=== PATIENT | female | born 1940 | race Caucasian/White ===

== ENCOUNTER → 2016-08-13 | Outpatient (CLI) | payer MEDICARE | END | disposition home or self-care (01) | LOC: CFH 12:40 | PROVIDERS: ATTEND Family Medicine | DX: N63 Unspecified lump in breast (principal); N64.52 Nipple discharge | CPT/HCPCS: 76641; G0204 ==

== ENCOUNTER → 2016-08-27 | Outpatient (CLI) | payer MEDICARE ==
[~2016-08-27] MED LIST: LIDOCAINE 1%, 20ML ONE; SODIUM BICARBONATE 4.2%, 5ML ONE
== END | disposition home or self-care (01) ==
LOC: CFH 08:22
PROVIDERS: ATTEND Family Medicine
DX: N63 Unspecified lump in breast (principal)
CPT/HCPCS: 19083; 88305; G0206; J3490

== ENCOUNTER → 2016-09-12 | Outpatient (CLI) | payer MEDICARE ==
[~2016-09-12] MED LIST changes: +ASPI-496 PO; +CHOL200024 PO; -LIDOCAINE 1%, 20ML ONE; +MULT-516 PO; +OMEG1CAP56 PO; -SODIUM BICARBONATE 4.2%, 5ML ONE
== END | disposition home or self-care (01) ==
LOC: STAR 10:12
PROVIDERS: ATTEND Surgery
DX: Z01.818 Encounter for other preprocedural examination (principal); R94.31 Abnormal electrocardiogram [ECG] [EKG]; C50.219 Malignant neoplasm of upper-inner quadrant of unspecified female breast; E78.00 Pure hypercholesterolemia, unspecified
CPT/HCPCS: 93005

== ENCOUNTER 2016-09-22 10:00 | Day surgery (SDC) | payer MEDICARE ==
[2016-09-12 10:33] VITALS: BP 156/88
[~2016-09-22] VITALS: Ht 180.3 cm; Wt 83.5 kg
[2016-09-22] MEDS ORDERED: LACTATED RINGERS 1,000 ML IV SCH (10:17)
[2016-09-22] MEDS ORDERED: LIDOCAINE 1%, 2ML ONE (10:25)
[2016-09-22] MEDS ORDERED: LIDOCAINE 1%, 2ML SQ PRN (10:30)
[2016-09-22] MEDS ORDERED: ALPRAZOLAM PO (10:34)
[2016-09-22] MEDS ORDERED: LIDOCAINE/PRILOCAINE CRM W/TEG 5GM ONE (10:34)
[2016-09-22] MEDS ORDERED: ISOSULFAN BLUE 10 MG/ML, 5ML IV ONE (11:14)
[2016-09-22] MEDS ORDERED: LIDOCAINE 1%, 20ML ONE (11:34)
[2016-09-22] MEDS ORDERED: FENTANYL PF 250 MCG/5ML ONE (12:40)
[2016-09-22] MEDS ORDERED: MIDAZOLAM 1 MG/ML, 2ML ONE (12:41)
[2016-09-22] MEDS ORDERED: DEXAMETHASONE 4 MG/ML, 1ML ONE (12:56)
[2016-09-22] MEDS ORDERED: CEFAZOLIN 1,000 MG ONE (12:56)
[2016-09-22] MEDS ORDERED: PROPOFOL 10 MG/ML, 20ML ONE (12:56)
[2016-09-22] MEDS ORDERED: KETOROLAC 30 MG/1 ML ONE (12:56)
[2016-09-22] MEDS ORDERED: ONDANSETRON 2MG/ML, 2ML ONE (12:56)
[2016-09-22] MEDS: BUPIVACAINE/PF 0.25% ONE ×2 (13:20→13:39)
[2016-09-22] MEDS ORDERED: METOPROLOL 1 MG/ML, 5ML IV PRN (13:30)
[2016-09-22] MEDS ORDERED: PROMETHAZINE 25 MG/ML, 1ML IV PRN (13:30)
[2016-09-22] MEDS ORDERED: OXYcodone 5 MG/5 ML ORAL.SOL UDC PO PRN (13:30)
[2016-09-22] MEDS ORDERED: ALBUTEROL SULFATE 2.5 MG/3 ML NPPB PRN (13:30)
[2016-09-22] MEDS ORDERED: EPHEDRINE 50 MG/ML, 1ML IVPush PRN (13:30)
[2016-09-22] MEDS ORDERED: ONDANSETRON 2MG/ML, 2ML IVPush PRN (13:30)
[2016-09-22] MEDS ORDERED: MIDAZOLAM 1 MG/ML, 2ML IV PRN (13:30)
[2016-09-22] MEDS ORDERED: MEPERIDINE/PF 25MG/0.5ML IVPush PRN (13:30)
[2016-09-22] MEDS ORDERED: HYDROmorphone 1 MG/ML, 1ML IV PRN (13:30)
[2016-09-22] MEDS ORDERED: hydrALAzine 20 MG/ML, 1ML IV PRN (13:30)
[2016-09-22] MEDS ORDERED: ACETAMINOPHEN 325 MG TABLET PO PRN (13:30)
[2016-09-22] MEDS ORDERED: LABETALOL 5MG/ML, 20ML ONE (14:03)
[2016-09-22] MEDS: LABETALOL 5MG/ML, 20ML IV PRN ×2 (14:04→14:14)
[2016-09-22] MEDS ORDERED: OXYcodone 5 MG/5 ML ORAL.SOL UDC ONE (14:05)
[2016-09-22] MEDS ORDERED: FENTANYL PF 100 MCG/2ML ONE (14:05)
[2016-09-22] MEDS: FENTANYL PF 100 MCG/2ML IV PRN ×2 (14:08→14:25)
== END 2016-09-22 16:45 | disposition home or self-care (01) ==
LOC: OUT 10:00 → EDSTATUS 13:00 → OUT 16:45
PROVIDERS: ATTEND Surgery
DX: C50.212 Malignant neoplasm of upper-inner quadrant of left female breast (principal); E78.00 Pure hypercholesterolemia, unspecified; Z87.19 Personal history of other diseases of the digestive system; Z98.42 Cataract extraction status, left eye; Z98.41 Cataract extraction status, right eye; Z96.1 Presence of intraocular lens; Z98.890 Other specified postprocedural states; Z72.89 Other problems related to lifestyle; Z87.891 Personal history of nicotine dependence; Z80.3 Family history of malignant neoplasm of breast; Z80.0 Family history of malignant neoplasm of digestive organs
CPT/HCPCS: 19301; 38525; 38792; 88307; 88333; A9541; J0690; J1100; J1885; J2250; J2405; J2704; J3010; J3490; J7120

== ENCOUNTER → 2016-12-17 | Outpatient (CLI) | payer MEDICARE ==
[~2016-12-17] MED LIST changes: +ALPRAZOLAM PO
== END | disposition home or self-care (01) ==
LOC: ROC 06:42
PROVIDERS: ATTEND Radiology Radiation Oncology
DX: Z08 Encounter for follow-up examination after completed treatment for malignant neoplasm (principal); D05.12 Intraductal carcinoma in situ of left breast; R21 Rash and other nonspecific skin eruption; Z79.82 Long term (current) use of aspirin; Z92.3 Personal history of irradiation
CPT/HCPCS: 99212; G0463

== ENCOUNTER → 2017-09-07 | Outpatient (CLI) | payer MEDICARE ==
[~2017-09-07] MED LIST changes: +OMEG-172 PO; -OMEG1CAP56 PO
== END | disposition home or self-care (01) ==
LOC: ROC 09:49
PROVIDERS: ATTEND Radiology Radiation Oncology
DX: C50.212 Malignant neoplasm of upper-inner quadrant of left female breast (principal)
CPT/HCPCS: 99212; G0463

== ENCOUNTER → 2018-03-08 | Outpatient (CLI) | payer MEDICARE | END | disposition home or self-care (01) | LOC: ROC 09:18 | PROVIDERS: ATTEND Radiology Radiation Oncology | DX: Z02.9 Encounter for administrative examinations, unspecified (principal) ==

== ENCOUNTER 2018-08-31 13:40 | Outpatient (CLI) | payer MEDICARE | END 2018-08-31 23:59 | disposition home or self-care (01) | LOC: CFH 13:40 | PROVIDERS: ATTEND Surgery | DX: Z85.3 Personal history of malignant neoplasm of breast (principal) | CPT/HCPCS: 77066; G0279; 77063 ==

== ENCOUNTER → 2019-11-16 | Outpatient (CLI) | payer MEDICARE | END | disposition home or self-care (01) | LOC: CFH 08:54 | PROVIDERS: ATTEND Surgery | DX: Z85.3 Personal history of malignant neoplasm of breast (principal) | CPT/HCPCS: 76642; 77066; G0279 ==

== ENCOUNTER → 2019-12-14 | Outpatient (CLI) | payer MEDICARE ==
[~2019-12-14] MED LIST changes: +GADOTERATE 10 MMOL/20 ML SYR ONE
== END | disposition home or self-care (01) ==
LOC: CFH 13:02
PROVIDERS: ATTEND Surgery
DX: R92.8 Other abnormal and inconclusive findings on diagnostic imaging of breast (principal); R23.4 Changes in skin texture
CPT/HCPCS: 77049; A9575; C8937; C8908

== ENCOUNTER 2020-11-23 12:34 | Outpatient (CLI) | payer MEDICARE ==
[~2020-11-23 12:34] MED LIST changes: -GADOTERATE 10 MMOL/20 ML SYR ONE
== END 2020-11-23 23:59 | disposition home or self-care (01) ==
LOC: CFH 12:34
PROVIDERS: ATTEND Surgery
DX: Z85.3 Personal history of malignant neoplasm of breast (principal)
CPT/HCPCS: 77062; 77063; 77066; G0279